=== PATIENT | female | born 1965 | race Two or more races ===

== ENCOUNTER 2021-05-13 17:18 | Emergency (ER) | payer MEDICARE, MEDICAID ==
[~2021-05-13] VITALS: Ht 160 cm; Wt 74.8 kg
[2021-05-13 19:30] VITALS: BP 152/92
[2021-05-13] MEDS ORDERED: KETOROLAC TROMETH 30 MG/ML 1ML VIAL IM ONE (20:00)
[2021-05-13] MEDS ORDERED: ONDANSETRON ODT 4 MG TAB PO ONE (20:15)
[2021-05-13] MEDS ORDERED: IBUP800T27 PO (20:58)
[2021-05-13] MEDS ORDERED: METH500T22 PO (20:58)
== END 2021-05-13 21:19 | disposition home or self-care (01) ==
LOC: ER 17:18
DX: S13.4XXA Sprain of ligaments of cervical spine, initial encounter (principal); V43.52XA Car driver injured in collision with other type car in traffic accident, initial encounter; Y93.89 Activity, other specified; Y92.89 Other specified places as the place of occurrence of the external cause; Y99.8 Other external cause status
CPT/HCPCS: 70450; 96372; 99284; J1885; Q0162

== ENCOUNTER 2022-09-10 20:59 | Emergency (ER) | payer MEDICARE, MEDICAID ==
[~2022-09-10] VITALS: Ht 162.6 cm; Wt 72.0 kg
[2022-09-10 20:59] VITALS: BP 114/67
[~2022-09-10 20:59] MED LIST: IBUP-1456 PO; METH-1181 PO
[2022-09-10 22:16] LABS: Basophils # (auto) 0 10 ^3/uL (0-0.2); Basophils % (auto) 0.4 % (0.0-2.0); Eosinophils # (auto) 0.2 10 ^3/uL (0-0.8); Eosinophils % (auto) 2.5 % (0.0-7.0); Hemoglobin 12.8 g/dL (12.2-16.2); Lymphocytes # (auto) 0.7 10 ^3/uL (0.4-5.4); Lymphocytes % (auto) 10.9 % (10.0-50.0); Mean Corpuscular Hemoglobin 29.7 pg (28.0-32.0); Mean Corpuscular Hgb Conc. 33.6 g/dL (32.0-36.0); Mean Corpuscular Volume 88.4 fL (80.0-100.0); Monocytes # (auto) 0.6 10 ^3/uL (0-1.3); Monocytes % (auto) 9.1 % (0.0-12.0); Neutrophils # (auto) 5.1 10 ^3/uL (1.6-8.6); Neutrophils % (auto) 77.1 % (37.0-80.0); Red Cell Distribution Width 14.4 % (11.8-14.3); White Blood Cell 6.6 10^3/uL (4.4-10.8)
[2022-09-10 22:27] LABS: Albumin 3.5 g/dL (3.4-5.0); Calcium 8.5 mg/dL (8.5-10.1); Potassium 4.3 mmol/L (3.5-5.1)
[2022-09-10 22:30] LABS: BUN/Creatinine Ratio 8.5 (10.0-20.0); Bilirubin, Total 0.5 mg/dL (0.2-1.0); Total Protein 7.1 g/dL (6.4-8.2)
[2022-09-11 00:44] LABS: Urine Bacteria NONE SEEN /hpf (None Seen); Urine Blood Negative /uL (Negative); Urine WBC 6 /hpf (0 - 5)
== END 2022-09-11 02:24 | disposition left against medical advice (07) ==
LOC: ER 21:02
DX: R53.1 Weakness (principal); R51.9 Headache, unspecified; H92.09 Otalgia, unspecified ear; R07.0 Pain in throat; R50.9 Fever, unspecified; R53.83 Other fatigue; R07.89 Other chest pain; Z79.1 Long term (current) use of non-steroidal anti-inflammatories (NSAID); Z79.899 Other long term (current) drug therapy
CPT/HCPCS: 36415; 70450; 71045; 80053; 81001; 83880; 84484; 85025; 93005